=== PATIENT | male | born 1955 | race Caucasian/White ===

== ENCOUNTER 2021-12-18 21:55 | Inpatient (IN) | payer MEDICARE ==
[~2021-12-18] VITALS: Ht 177.8 cm; Wt 91.0 kg
[~2021-12-18 21:55] MED LIST: ALTACE10 MG PO; CLOTRIMAZOLE-BE30 ML TP; LYRICA25 MG PO; NEURONTIN300 MG PO; PROTONIX40 MG PO; VITAMIN D350000 UNIT PO
[2021-12-18 22:53] LABS: HEMOGLOBIN 13.6 gm/dl (14.0-17.5); RED BLOOD COUNT 4.39 M/UL (4.20-5.50); WHITE BLOOD COUNT 16.8 K/UL (4.5-11.0)
[2021-12-18 23:48] LABS: BUN/CREATININE RATIO 12 (0-10)
[2021-12-19 05:33] LABS: HEMOGLOBIN 12.5 gm/dl (14.0-17.5); RED BLOOD COUNT 4.06 M/UL (4.20-5.50); WHITE BLOOD COUNT 13.4 K/UL (4.5-11.0)
[2021-12-19] MEDS ORDERED: PREGABALIN50 MG PO (09:26)
[2021-12-19] MEDS ORDERED: NORVASC10 MG PO (12:00)
[2021-12-19] MEDS ORDERED: ASPIRIN EC81 MG PO (19:12)
[2021-12-20 04:52] LABS: HEMOGLOBIN 12.2 gm/dl (14.0-17.5); RED BLOOD COUNT 3.94 M/UL (4.20-5.50); WHITE BLOOD COUNT 11.5 K/UL (4.5-11.0)
[2021-12-21 04:16] LABS: HEMOGLOBIN 11.8 gm/dl (14.0-17.5); RED BLOOD COUNT 3.79 M/UL (4.20-5.50); WHITE BLOOD COUNT 12.4 K/UL (4.5-11.0)
[2021-12-21] MEDS ORDERED: ZOFRAN 4 MG TAB4 MG PO (10:52)
== END 2021-12-21 11:29 | disposition home or self-care (01) | DRG 440 ==
LOC: ER1 21:55 → PROG CARE 12-19 00:56 → CDU 12-19 00:56 → PROG CARE 12-19 03:48
PROVIDERS: Internal Medicine; Physician Assistant; ADMIT Internal Medicine
DX: K85.10 Biliary acute pancreatitis without necrosis or infection (principal); E80.6 Other disorders of bilirubin metabolism; Z20.822 Contact with and (suspected) exposure to COVID-19; R74.01 Elevation of levels of liver transaminase levels; I10 Essential (primary) hypertension; Z79.01 Long term (current) use of anticoagulants; Z79.82 Long term (current) use of aspirin; Z87.442 Personal history of urinary calculi; Z79.1 Long term (current) use of non-steroidal anti-inflammatories (NSAID); Z79.811 Long term (current) use of aromatase inhibitors; Z79.891 Long term (current) use of opiate analgesic
CPT/HCPCS: 36415; 71045; 74181; 76705; 80053; 81001; 82150; 82550; 82553; 83690; 83874; 84478; 84484; 85025; 87040; 93005; 94760; 96374; 96375; 96376; 99285; J0295; J1650; J2270; J2405; J2543; J7030; U0002